=== PATIENT | male | born 1985 | race Caucasian/White ===

== ENCOUNTER 2017-09-21 14:34 | Emergency (ER) | payer OTHER ==
[2017-09-21 14:56] LABS: ADD MAN DIFF? NO
[2017-09-21 15:22] LABS: WHITE BLOOD COUNT 5.6 10^3/ul (4.8-10.8)
[2017-09-21 15:22] LABS: BASOPHILS % 0.5 % (0.0-2.0); EOSINOPHILS % 0.2 % (0.0-7.0); HEMATOCRIT 37.9 % (42.0-52.0); LYMPHOCYTES # 1.8 10^3/ul (0.8-2.9); LYMPHOCYTES % 32.1 % (15.0-51.0); MEAN CORPUSCULAR HEMOGLOBIN 29.8 pg (29.0-33.0); MEAN CORPUSCULAR HGB CONC 34.3 g/dl (32.0-37.0); MEAN CORPUSCULAR VOLUME 86.9 fl (82.0-101.0); MEAN PLATELET VOLUME 10.1 fl (7.4-10.4); MONOCYTE # 0.4 10^3/ul (0.3-0.9); MONOCYTES % 6.3 % (0.0-11.0); NEUTROPHIL # 3.4 10^3/ul (1.6-7.5); NEUTROPHILS % 60.7 % (39.0-77.0); PLATELET COUNT 347 10^3/UL (140-415); RED BLOOD COUNT 4.36 10^6/ul (4.70-6.10); RED CELL DISTRIBUTION WIDTH 12.7 % (11.5-14.5)
[2017-09-21 15:26] LABS: ALANINE AMINOTRANSFERASE 30 IU/L (13-69); ALBUMIN 4.1 g/dl (3.3-4.9); ALBUMIN/GLOBULIN RATIO 1.41; ALKALINE PHOSPHATASE 55 IU/L (42-121); ANION GAP 13 (8-16); ASPARTATE AMINO TRANSFERASE 45 IU/L (15-46); BILIRUBIN,INDIRECT 0.4 mg/dl (0-1.1); BILIRUBIN,TOTAL 0.4 mg/dl (0.2-1.3); BLOOD UREA NITROGEN 15 mg/dl (7-20); CALCIUM 8.8 mg/dl (8.4-10.2); CARBON DIOXIDE 26 mmol/L (21-31); CHLORIDE 111 mmol/L (97-110); GLUCOSE 95 mg/dl (70-220); SODIUM 147 mmol/L (135-144)
[2017-09-21 15:30] LABS: POTASSIUM 2.8 mmol/L (3.5-5.1)
[2017-09-21 15:31] LABS: ACETAMINOPHEN < 10.0 ug/ml (10.0-30.0); SALICYLATE < 1.0 mg/dl (5.0-30.0)
[2017-09-21 16:08] LABS: MAGNESIUM 2.7 mg/dl (1.7-2.5)
[2017-09-21] MEDS: POTASSIUM CHLORIDE (SR) 20 MEQ TAB PO ×2 (16:09→19:17)
[2017-09-21 21:39] LABS: POTASSIUM 3.6 mmol/L (3.5-5.1)
[2017-09-21] MEDS ORDERED: LORAZEPAM 1 MG TAB PO (22:00)
[2017-09-21] MEDS ORDERED: DIPHENHYDRAMINE 50 MG CAP PO (22:00)
[2017-09-21] MEDS ORDERED: OLANZAPINE 5 MG TAB PO (22:00)
== END 2017-09-22 02:49 ==
LOC: E/R 09-22 02:49
DX: F79 Unspecified intellectual disabilities (principal); D64.9 Anemia, unspecified; F11.10 Opioid abuse, uncomplicated; E87.6 Hypokalemia; E83.41 Hypermagnesemia; F10.10 Alcohol abuse, uncomplicated
CPT/HCPCS: 36415; 80053; 80307; 83735; 84132; 85025; 99285-25